=== PATIENT | female | born 1945 | race Caucasian/White ===

== ENCOUNTER 2017-10-25 17:34 | Observation (INO) | payer MEDICARE ==
[2017-10-25] MEDS ORDERED: MIDAZOLAM 2 MG/2 ML VIAL IVP STA (17:43)
[2017-10-25] MEDS ORDERED: SODIUM CHLORIDE 0.9% 1,000 ML IV ONE ×2 (17:44→20:20)
[2017-10-25 17:53] LABS: HGB - HEMOGLOBIN 13.3 g/dL (12.0-16.0); MEAN CORPUSCULAR HEMOGLOBIN 31.8 pg (27.0-31.0)
[2017-10-25 17:57] LABS: BASOPHILS % (AUTO) 0.5 %; EOSINOPHILS % (AUTO) 1.5 %; LYMPHOCYTES % (AUTO) 54.3 %; MEAN CORPUSCULAR HGB CONC 32.1 g/dL (32.0-36.0); MEAN CORPUSCULAR VOLUME 99.1 fL (81.0-99.0); MEAN PLATELET VOLUME 8.6 fL (7.9-10.8); NEUTROPHILS % (AUTO) 35.7 %; PLT - PLATELET COUNT 306 10^3/uL (130-450); RED BLOOD COUNT 4.18 10^6/uL (4.20-5.40); RED CELL DISTRIBUTION WIDTH 12.1 % (12.0-15.0); WHITE BLOOD COUNT 13.9 x10^3/uL (4.8-10.8)
[2017-10-25 17:59] LABS: ALBUMIN 4.5 g/dL (3.2-5.5); ALBUMIN/GLOBULIN RATIO 1.6 (1.0-2.2); BILIRUBIN,TOTAL 0.5 mg/dL (0.2-1.0); CALCIUM 9.5 mg/dL (8.5-10.3); CREATININE 0.9 mg/dL (0.4-1.0); MAGNESIUM 2.4 mg/dL (1.7-2.8); TOTAL PROTEIN 7.4 g/dL (6.7-8.2)
[2017-10-25 18:05] LABS: ABNORMAL LYMPHS % (MANUAL) 0 %; BAND NEUTROPHILS % (MANUAL) 0 %
[2017-10-25 18:21] LABS: EOSINOPHILS # (MANUAL) 0.1 10^3/uL (0-0.7); LYMPHOCYTES # (MANUAL) 7.8 10^3/uL (1.5-3.5); LYMPHOCYTES % (MANUAL) 16 %; MONOCYTES # (MANUAL) 0.6 10^3/uL (0.0-1.0); NEUTROPHILS # (MANUAL) 5.4 10^3/uL (1.5-6.6); NEUTROPHILS % (MANUAL) 39 %
[2017-10-25 18:22] LABS: DIFFERENTIAL COMMENT MANUAL DIFFERENTIAL; PLATELET ESTIMATE, MANUAL NORMAL (130-450,000) (NORMAL); PLATELET MORPHOLOGY 1+ LARGE PLATELETS (NORMAL); RBC MORPHOLOGY (MULTIPLE) NORMAL APPEARANCE (NORMAL)
--- NOTE | 2017-10-25 18:35 | CT Report ---
EXAM: CT HEAD EXAM DATE: 10/25/2017 06:19 PM. CLINICAL HISTORY: Repeated seizures. COMPARISON: None. TECHNIQUE: Multiaxial CT images were obtained from the foramen magnum to the vertex. Reformats: Coron al. IV contrast: None. In accordance with CT protocol optimization, one or more of the following dose reduction techniques w ere utilized for this exam: automated exposure control, adjustment of mA and/or KV based on patient s ize, or use of iterative reconstructive technique. FINDINGS: Parenchyma: No intraparenchymal hemorrhage. Prominent encephalomalacia and volume loss in the left te mporal lobe due to previous surgery. No evidence of mass, midline shift, or CT findings of acute infa rction. Farah-white differentiation is distinct. Diffuse chronic microangiopathic white matter changes . Extraaxial Spaces: Normal for age. No subdural or epidural collections. Ventricles: The ventricles and cortical sulci are enlarged, consistent with age-related tissue loss. Sinuses and orbits: Imaged paranasal sinuses, orbits, and mastoids show no significant abnormality. Bones: Previous left temporoparietal craniotomy. Otherwise unremarkable. Other: None. IMPRESSION: Postoperative and other chronic findings. No acute disease. [facility] Referring Provider Line: [phone] SITE ID: [id number]
[2017-10-25] MEDS ORDERED: ACETAMINOPHEN 1,000 MG/100 ML 100 ML IV STA (19:18)
[2017-10-25] MEDS ORDERED: ONDANSETRON 4 MG/2 ML VIAL IVP STA (20:20)
[2017-10-25] MEDS ORDERED: levETIRAcetam INJ 1,000 MG in SODIUM CHLORIDE 0.9% 100ML 100 ML IV STA (20:58)
--- NOTE | 2017-10-25 21:06 | ED Physician Documentation ---
PD HPI SEIZURE - Stated complaint Stated Complaint: UNRESPONSIVE - Chief complaint Chief Complaint: Resp - History obtained from History obtained from: Patient - History of Present Illness Timing - onset: Today (she is visiting friend (lives in [facility], so not far) and her friend noted patient to be having blank stare and not interacting well verbally. No noted weakness. She drove patient to the ER and just arriving in parking lot, the patient had general seizure. It stopped as EMS got patient into the ER. She had another seizure just coming into the ER though. IV started and was given Versed 2 mg with the seizure stopping. She then had a third one 15 -20 minutes later with just starting to rouse and open eyes better prior to that. She did recover from that one and subsequently rouses and opens eyes.) Number of seizures: Multiple, Lasted minutes Description of seizure activity: Generalized Injury during seizure: No: Fell, Head injury Associated symptoms: No: Headache, Chest pain, Nausea / vomiting History of seizures: Known seizure disorder (but has not had one for over 3-4 years.) Contributing factors: Off meds (had been taken off meds by her Neruologist due to no seizures for years. Has not been on meds for 3-4 years.), Sleep deprivation (had been tired and not sleeping well lately per family/friend.). No: Substance abuse, Fever Similar symptoms before: Diagnosis (had brain surgery years ago and subsequent seizures) Recently seen: Not recently seen Review of Systems Unable to obtain: AMS, Confused Constitutional: denies: Fever Nose: denies: Congestion Throat: denies: Sore throat Respiratory: denies: Cough GI: denies: Vomiting, Diarrhea Neurologic: denies: Generalized weakness, Syncope Psychiatric: denies: Depressed PD PAST MEDICAL HISTORY - Past Medical History Past Medical History: No Respiratory: Asthma Neuro: Seizure disorder Other Past Medical History: viral encephelitis,. sz. - Past Surgical History Past Surgical History: Yes - Allergies Allergies/Adverse Reactions: Allergies Allergy/AdvReac Type Severity Reaction Status Date / Time No Known Drug Allergies Allergy Verified 10/25/17 18:50 - Social History Does the pt smoke?: No Smoking Status: Never smoker Does the pt drink ETOH?: No Does the pt have substance abuse?: No - Immunizations Immunizations are current?: Yes PD ED PE NORMAL - Vitals Vital signs reviewed: Yes - General General: Other (initially unresponsive with post ictal altered mentation. Snoring breathing but good sats. after couple more seizures, she does rouse to awake, confused, and talkative. ) - HEENT HEENT: Atraumatic, Moist mucous membranes, Pharynx benign - Neck Neck: Supple, no meningeal sign, No adenopathy - Cardiac Cardiac: RRR, No murmur - Respiratory Respiratory: Clear bilaterally - Abdomen Abdomen: Soft, Non tender - Back Back: No CVA TTP - Derm Derm: Normal color, Warm and dry - Neuro Neuro: Alert and oriented X 3, Normal speech, Other (right arm significant weakness, cannot lift it off the cart. Right leg mild weakness. Left side is normal. No facial droop. ) Eye Opening: To Voice Motor: Obeys Commands Verbal: Oriented GCS Score: 14 - Psych Psych: Normal mood Results - Vitals Vitals: Vital Signs - 24 hr 10/25/17 10/25/17 10/25/17 17:34 17:50 18:02 Temperature 38.1 C H Heart Rate 127 H 130 H 120 H Respiratory 18 20 Rate Blood Pressure 197/67 H 136/84 H O2 Saturation 100 100 10/25/17 10/25/17 10/25/17 18:30 18:40 18:46 Temperature 36.7 C Heart Rate 122 H 112 H 104 H Respiratory 24 25 H 19 Rate Blood Pressure 168/78 H 132/69 H 127/49 L O2 Saturation 100 98 94 10/25/17 10/25/17 10/25/17 19:06 19:25 20:37 Temperature 36.9 C Heart Rate 104 H 99 88 Respiratory 20 20 18 Rate Blood Pressure 119/53 L 134/79 H 126/70 O2 Saturation 94 93 95 10/25/17 21:01 Temperature Heart Rate 87 Respiratory Rate Blood Pressure 136/68 H O2 Saturation 94 Oxygen O2 Source Room air Oxygen Flow Rate 15 - EKG (time done) 17:49 Rate: Rate (enter#) (120) Rhythm: Sinus tachycardia [place]: Normal Intervals: Normal LA QRS: Normal Ischemia: Normal ST segments. No: ST elevation c/w ischemia, ST depression - Labs Labs: Laboratory Tests 10/25/17 10/25/17 10/25/17 17:40 17:40 17:40 WBC 13.9 H RBC 4.18 L Hgb 13.3 Hct 41.4 MCV 99.1 H MCH 31.8 H MCHC 32.1 RDW 12.1 Plt Count 306 MPV 8.6 Neut # Not Reportable Lymph # Not Reportable [place] # Not Reportable Eos # Not Reportable Baso # Not Reportable Absolute Nucleated RBC Not Reportable Total Counted 100 Band Neuts % (Manual) 0 Reactive Lymphs % (Man) 40 Abnorm Lymph % (Manual) 0 Nucleated RBC % Not Reportable Neutrophils # (Manual) 5.4 Lymphocytes # (Manual) 7.8 H Monocytes # (Manual) 0.6 Eosinophils # (Manual) 0.1 Basophils # (Manual) 0.0 Differential Comment MANUAL DIFFERENTIAL Platelet Estimate NORMAL (130-450,000) Platelet Morphology 1+ LARGE PLATELETS RBC Morph Micro Appear NORMAL APPEARANCE Sodium 141 Potassium 3.9 Chloride 106 Carbon Dioxide 16 L Anion Gap 19.0 H BUN 25 H Creatinine 0.9 Estimated GFR (MDRD) 62 L Glucose 144 H POC Whole Bld Glucose Calcium 9.5 Magnesium 2.4 Total Bilirubin 0.5 AST 36 ALT 23 Alkaline Phosphatase 69 Troponin I < 0.04 B-Natriuretic Peptide Total Protein 7.4 Albumin 4.5 Globulin 2.9 Albumin/Globulin Ratio 1.6 Lipase 31 10/25/17 10/25/17 17:40 17:45 WBC RBC Hgb Hct MCV MCH MCHC RDW Plt Count MPV Neut # Lymph # [place] # Eos # Baso # Absolute Nucleated RBC Total Counted Band Neuts % (Manual) Reactive Lymphs % (Man) Abnorm Lymph % (Manual) Nucleated RBC % Neutrophils # (Manual) Lymphocytes # (Manual) Monocytes # (Manual) Eosinophils # (Manual) Basophils # (Manual) Differential Comment Platelet Estimate Platelet Morphology RBC Morph Micro Appear Sodium Potassium Chloride Carbon Dioxide Anion Gap BUN Creatinine Estimated GFR (MDRD) Glucose POC Whole Bld Glucose 138 H Calcium Magnesium Total Bilirubin AST ALT Alkaline Phosphatase Troponin I B-Natriuretic Peptide 177 H Total Protein Albumin Globulin Albumin/Globulin Ratio Lipase - Rads (name of study) head CT Radiology: Prelim report reviewed (post operative changes old. No acute bleeding nor acute process ), EMP read contemporaneously PD MEDICAL DECISION MAKING - ED course Complexity details: reviewed results, re-evaluated patient (more alert and conversant slowly. Prolonged post ictal clearing and has right arm and leg weakness, consider from Sz versus vascular cause with related seizure.), considered differential (she has been several years since seizures and is older , with right arm weakness. Consider Todds paralysis after seizure versus CVA with seizure component. CT head is okay at this time. 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 He suggests 1 G Keppra now and in AM IV and then change to orals. Eval with MRI in AM if arm still weak. Follow up soon with Neuro in [facility]. ) Departure - Departure Disposition: ED Place in Observation Clinical Impression: Seizures, Right arm weakness Condition: Stable Record reviewed to determine appropriate education?: Yes Discharge Date/Time: 10/25/17 23:34
[2017-10-25] MEDS ORDERED: SODIUM CHLORIDE FLUSH 0.9% 10 ML SYRINGE IVP PRN (21:09)
[2017-10-25] MEDS ORDERED: PROCHLORPERAZINE 10 MG/2 ML VIAL IVP PRN (21:09)
[2017-10-25] MEDS ORDERED: ZOLPIDEM 5 MG TABLET PO PRN (21:09)
[2017-10-25] MEDS ORDERED: PROMETHAZINE 25 MG/1 ML VIAL IM PRN (21:09)
[2017-10-25] MEDS ORDERED: oxyCODONE 5 MG TABLET PO PRN ×2 (21:09)
[2017-10-25] MEDS ORDERED: ACETAMINOPHEN 325 MG TABLET PO PRN (21:09)
[2017-10-25] MEDS ORDERED: ONDANSETRON 4 MG/2 ML VIAL IVP PRN (21:09)
[2017-10-25] MEDS ORDERED: IOPAMIDOL-300 100 ML VIAL IVP ONE ×2 (21:10→22:13)
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
[2017-10-25] MEDS ORDERED: IOPAMIDOL-300 100 ML VIAL ONE (22:18)
--- NOTE | 2017-10-25 22:44 | CT Report ---
EXAM: CT ANGIOGRAM HEAD. CT SCAN OF THE HEAD WITHOUT AND WITH CONTRAST. EXAM DATE: 10/25/2017 10:17 PM CLINICAL HISTORY: Seizure and right sided weakness. COMPARISON: None. TECHNIQUE: - CT Scan Head: Using a multidetector scanner, axial images were acquired from the foramen magnum to the skull vertex prior to and following contrast administration. - CT Angiogram: Using a multidetector scanner, high-resolution axial images were acquired from the sk ull base through vertex following rapid infusion of intravenous contrast. Reformats: Multiplanar MIP reformats were reconstructed. Nascet criteria used for stenosis measurement. IV Contrast: 80 cc Isovue-300. In accordance with CT protocol optimization, one or more of the following dose reduction techniques w ere utilized for this exam: automated exposure control, adjustment of mA and/or KV based on patient s ize, or use of iterative reconstructive technique. FINDINGS: NON-CONTRAST HEAD: Parenchyma: No intraparenchymal hemorrhage. No evidence of mass, midline shift, or CT findings of acu te infarction. Status post left temporal lobe resection. Extraaxial Spaces: Normal for age. No subdural or epidural collections identified. Ventricles: Normal in size and position. Sinuses and orbits: Imaged paranasal sinuses, orbits, and mastoids show no significant abnormality. Bones: Status post left-sided craniotomy. Other: None. POST-CONTRAST HEAD: No abnormal enhancement. CT ANGIOGRAM HEAD: RIGHT: Internal Carotid artery: No evidence of dissection. No evidence of aneurysm along the intracranial IC A. Anterior Cerebral Artery: Patent without significant stenosis, aneurysm, or vascular malformation. Middle Cerebral Artery: Patent without significant stenosis, aneurysm, or vascular malformation. Posterior Cerebral Artery: Patent without significant stenosis, aneurysm, or vascular malformation. Posterior Communicating Artery: Patent. No aneurysm. Vertebral Artery: Patent without significant stenosis. No evidence of dissection. LEFT: Internal Carotid artery: No evidence of dissection. No evidence of aneurysm along the intracranial IC A. Anterior Cerebral Artery: Patent without significant stenosis, aneurysm, or vascular malformation. Middle Cerebral Artery: Patent without significant stenosis, aneurysm, or vascular malformation. Posterior Cerebral Artery: Patent without significant stenosis, aneurysm, or vascular malformation. Posterior Communicating Artery: Patent. No aneurysm. Vertebral Artery: Patent without significant stenosis. No evidence of dissection. CENTRAL: Anterior Communicating Artery: Patent. No aneurysm. Basilar Artery: Patent without significant stenosis. No aneurysm. DURAL VENOUS SINUSES AND MAJOR CENTRAL VEINS: Patent. IMPRESSION: CT Head: No acute intracranial abnormality. No abnormal enhancement. CTA Head: Normal CTA of the head. No intracranial stenosis or aneurysm. [facility] Referring Provider Line: [phone] SITE ID: [id number]
--- NOTE | 2017-10-25 22:44 | CT Preliminary Report ---
Exam: CT HEAD ANGIO IMPRESSION: CT Head: No acute intracranial abnormality. No abnormal enhancement. CTA Head: Normal CTA of the head. No intracranial stenosis or aneurysm. [facility] SITE ID: [id number]
--- NOTE | 2017-10-25 22:52 | CT Report ---
EXAM: CT ANGIOGRAM NECK EXAM DATE: 10/25/2017 10:18 PM. CLINICAL HISTORY: Seizure and right sided weakness. COMPARISON: None. TECHNIQUE: Routine axial helical imaging was performed from the skull base through the aortic arch. R econstructions: Routine multiplanar 3D MIP reconstructions. IV Contrast: Yes. Evaluation of arterial stenosis is based on a NASCET method of measurement. In accordance with CT protocol optimization, one or more of the following dose reduction techniques w ere utilized for this exam: automated exposure control, adjustment of mA and/or KV based on patient s ize, or use of iterative reconstructive technique. FINDINGS: Right Carotid: The common carotid, internal carotid, and external carotid arteries are widely patent. No dissection, significant atherosclerotic plaque, or calcification identified. Left Carotid: The common carotid, internal carotid, and external carotid arteries are widely patent. There is calcification of the proximal left ICA without significant stenosis. Vertebrals: There is moderate narrowing of the right vertebral origin. Remainder of right vertebral n ormal in caliber. Left vertebral origin is not well seen due to streak related to venous contrast. Re mainder of left vertebral normal in caliber. Intracranial Circulation: Normal. No stenoses or aneurysms of the visualized vessels. Other: The bones, soft tissues, and lung apices are within normal limits. IMPRESSION: 1. No carotid stenosis. 2. Moderate narrowing of right vertebral origin. Left vertebral origin not well seen. Remainder of ve rtebral artery is normal in caliber. [facility] Referring Provider Line: [phone] SITE ID: [id number]
--- NOTE | 2017-10-25 22:52 | CT Preliminary Report ---
Exam: CT NECK ANGIO IMPRESSION: 1. No carotid stenosis. 2. Moderate narrowing of right vertebral origin. Left vertebral origin not well seen. Remainder of ve rtebral artery is normal in caliber. [facility] SITE ID: [id number]
[2017-10-26] MEDS: SODIUM CHLORIDE FLUSH 0.9% 10 ML SYRINGE IVP SCH ×3 (01:26→20:53)
[2017-10-26 04:23] LABS: BILIRUBIN,URINE NEGATIVE (NEGATIVE); GLUCOSE, URINE (UA) NEGATIVE (NEGATIVE); KETONES,URINE (UA) NEGATIVE (NEGATIVE); LEUKOCYTE ESTERASE, URINE NEGATIVE (NEGATIVE); NITRITE,URINE NEGATIVE (NEGATIVE); OCCULT BLOOD,URINE MODERATE (NEGATIVE); PH,URINE 5.5 PH (5.0-7.5); PROTEIN,URINE NEGATIVE (NEGATIVE); UROBILINOGEN,URINE 0.2 (NORMAL) E.U./dL (NORMAL)
[2017-10-26 04:28] LABS: CLARITY,URINE CLEAR (CLEAR)
[2017-10-26 04:29] LABS: BACTERIA,URINE Rare /HPF (None Seen); SQUAMOUS EPITHELIAL CELL,UR RARE Squamous (<= Few)
[2017-10-26 05:12] LABS: BASOPHILS % (AUTO) 0.4 %; EOSINOPHILS % (AUTO) 0.1 %; HGB - HEMOGLOBIN 11.6 g/dL (12.0-16.0); LYMPHOCYTES # (AUTO) 1.5 10^3/uL (1.5-3.5); LYMPHOCYTES % (AUTO) 21.6 %; MEAN CORPUSCULAR HEMOGLOBIN 32.3 pg (27.0-31.0); MEAN CORPUSCULAR HGB CONC 34.4 g/dL (32.0-36.0); MEAN CORPUSCULAR VOLUME 93.9 fL (81.0-99.0); MEAN PLATELET VOLUME 7.7 fL (7.9-10.8); MONOCYTES # (AUTO) 0.7 10^3/uL (0.0-1.0); MONOCYTES % (AUTO) 9.8 %; NEUTROPHILS # (AUTO) 4.6 10^3/uL (1.5-6.6); NEUTROPHILS % (AUTO) 68.1 %; PLT - PLATELET COUNT 212 10^3/uL (130-450); RED BLOOD COUNT 3.58 10^6/uL (4.20-5.40); RED CELL DISTRIBUTION WIDTH 11.9 % (12.0-15.0); WHITE BLOOD COUNT 6.8 x10^3/uL (4.8-10.8)
[2017-10-26 05:17] LABS: PT - PROTHROMBIN TIME 11.6 secs (9.9-12.6)
[2017-10-26 05:23] LABS: ALBUMIN 3.7 g/dL (3.2-5.5); ALBUMIN/GLOBULIN RATIO 1.6 (1.0-2.2); BILIRUBIN,TOTAL 0.6 mg/dL (0.2-1.0); CALCIUM 8.1 mg/dL (8.5-10.3); CREATININE 0.7 mg/dL (0.4-1.0)
[2017-10-26 05:28] LABS: HB2 TOTAL 12.6 g/dL; HEMOGLOBIN A1C 0.43 g/dL; HEMOGLOBIN A1C % 5.3 % (4.6-6.2)
[2017-10-26] MEDS ORDERED: levETIRAcetam INJ 1,000 MG in SODIUM CHLORIDE 0.9% 100ML 100 ML IV SCH (09:00)
[2017-10-26] MEDS: ASPIRIN 325 MG TABLET PO SCH (09:06)
[2017-10-26] MEDS: FAMOTIDINE 20 MG TABLET PO SCH (09:06)
[2017-10-26] MEDS: POLYETHYLENE GLYCOL 3350 17 GM PACKET PO SCH (09:07)
[2017-10-26] MEDS ORDERED: diazePAM 5 MG TABLET PO SCH (09:27)
[2017-10-26] MEDS ORDERED: LORazepam 2 MG/ML VIAL IVP PRN (09:27)
--- NOTE | 2017-10-26 12:47 | MRI Report ---
EXAM: MRI BRAIN WITHOUT CONTRAST EXAM DATE: 10/26/2017 11:44 AM. CLINICAL HISTORY: Seizure and right-sided weakness. History of partial seizures which started after e pisode of meningitis over 30 years ago. COMPARISON: CT scan and CT angiogram of the head 10/25/2017. TECHNIQUE: Multiplanar, multisequence T1-weighted and fluid-sensitive MR sequences of the brain were performed. Sequences optimized for routine evaluation. Other: None. IV Contrast: None. FINDINGS: Brain Volume: Normal for age. Parenchyma/Dura: No mass, acute infarct or hemorrhage. Postoperative change from resection of the anterior left temporal lobe is evident. Patchy white matte r T2/FLAIR bright signal is seen at the surgical interface of resection in the mid left temporal lobe . Resection of the anterior left hippocampal formation is appreciated. Atrophy of the posterior left hippocampal formation is present. Atrophy of the left fornix is seen as well. The right hippocampal f ormation and fornix are unremarkable. A small focal area of cortical and subcortical cystic encephalomalacia is seen posterolaterally in th e posterior left temporal lobe. Similar small focus of punctate T2/FLAIR bright signal is seen in the left frontal operculum. Ventricles/Cisterns: No hydrocephalus. No abnormal extra-axial fluid collection or hemorrhage. Orbits: Symmetric and unremarkable. Sella Turcica: The pituitary gland, cavernous sinuses, suprasellar cistern and optic chiasm are unrem arkable. IAC: Symmetric and unremarkable. Vasculature: Normal signal flow void is seen in the major arterial structures at the skull base. Sinuses: No acute appearing sinus disease. Bones: No focal pathologic appearing marrow signal changes. Other: None. IMPRESSION: 1. Postoperative change from resection of the anterior left temporal lobe. Associated atrophy of post erior left hippocampal formation and left fornix is evident. 2. The right hippocampal formation and fornix are unremarkable. 3. Small focus of encephalomalacia seen posterolaterally in the left temporal lobe with punctate focu s in the left frontal operculum. [facility] Referring Provider Line: [phone] SITE ID: [id number]
--- NOTE | 2017-10-26 18:36 | PROVIDER PROGRESS NOTE ---
Assessment/Plan - Problem List (1) Depression Qualifiers: Depression Type: major depressive disorder Major depression recurrence: recurrent Major depression episode severity: mild Assessment/Plan: Patient has a long history of depression, and is not medically treated at home. She has a remote history of suicidal ideation, but has not been an issue for her lately. Plan: Continue current plan. (2) Right sided weakness Assessment/Plan: Ronna was receiving out patient OT for her right upper arm injury for the past few months and has baseline impairment. A brain MRI was completed and showed no new injury or changes from previous craniotomy ~30 years ago. Plan: Continue to monitor. (3) Tonic clonic seizures Assessment/Plan: Patient has a history of menengitis ~30 years ago that required a craniotomy. Since that time she has had intermittent seizures. As per Dr. Augustin's HPI: The patient was previously on antiepileptic medications until about 3-4 years ago when she stopped the medications with the guidance of her neurologist. She states that prior to this she went on to healing retreat and since then had not had any further seizures and stopped the medications. At the time of admission , she was in her normal state of health and visiting her friend. The patient's friend noticed during a hike, that the patient was acting strangely and staring off. The patient's friend became concerned that she was not responding appropriately and took her into her car and brought her to the emergency department. When the patient reached the parking lot of the emergency department with her friend states the patient grabbed her chest and the patient' s eyes rolled back. The patient was taken out of the car and began having agonal respirations in the parking lot. A CODE BLUE was called and the patient was put on a stretcher to bring to the emergency department and during transport on the stretcher she had a tonic-clonic seizure. The seizure aborted spontaneously and the patient was postictal in the ED. She had another tonic- clonic seizure this time she required Versed in order to abort the seizure. After the seizure she was again postictal and even after she seemed to have regained her normal mentation she had persistent right sided weakness of her arm and leg. During the the day shift today, she was fount to have a "gaze" noted by family, but no other symptoms and no change in VS. She had just finished her IV Keppra. Plan: Continue current treatment and await MRI results. - Current Meds Current Meds: Current Medications Generic Name Dose Route Start Last Admin Trade Name Freq PRN Reason Stop Dose Admin Acetaminophen 650 mg 10/25/17 21:09 10/26/17 01:25 Tylenol PO 650 mg Q4HR PRN Administration Pain 1 to 4 Aspirin 325 mg 10/26/17 08:00 10/26/17 09:06 Ezra PO 325 mg DAILYWM JOSE CARLOS Administration Famotidine 20 mg 10/26/17 09:00 10/26/17 09:06 Pepcid PO Not Given DAILY JOSE CARLOS Lorazepam 0.5 mg 10/26/17 09:27 10/26/17 10:42 Ativan Inj (Vial) IVP 0.5 mg Q2H PRN Administration Anxiety Polyethylene Glycol 17 gm 10/26/17 09:00 10/26/17 09:07 Miralax PO Not Given DAILY JOSE CARLOS Prochlorperazine Edisylate 10 mg 10/25/17 21:09 10/26/17 09:05 Compazine Inj IVP 10 mg Q6HR PRN Administration Nausea / Vomiting Sodium Chloride 10 ml 10/25/17 21:09 10/26/17 10:41 Normal Saline Flush 0.9% IVP 10 ml PRN PRN Administration NEEDED PER PROVIDER ORDERS Sodium Chloride 10 ml 10/26/17 01:00 10/26/17 09:06 Normal Saline Flush 0.9% IVP 10 ml 0100,[id number],1700 JOSE CARLOS Administration - Lab Result Lab results reviewed: Yes Fish Bone Diagrams: 10/27/17 05:28 10/27/17 05:28 - EKG Results EKG Interpreted Independently: Yes - Diagnostic Imaging Results Diagnostic Imaging Results: Prelim report reviewed, Final report reviewed - Additional Planning Condition/Complexity: Guarded My Orders: My Active Orders 10/26/17 09:27 LORazepam INJ [Ativan Inj (Vial)] 0.5 mg IVP Q2H PRN Consult/Specialty: Neurology (Contact with [facility] [place] in [place] was made at the time of admission- recommendations were given and followed thus far.) Plan Discussed with:: Patient, Family Time Spent: 15-30 minutes Subjective - Subjective Patient Reports: Feeling Better, No Complaints Nursing Reports: No Complaints, Headache (chronic, no changes.) Objective Vital Signs: Vital Signs - 24 hr 10/25/17 10/25/17 10/25/17 21:35 22:29 23:29 Temperature 36.6 C 36.7 C Heart Rate 88 88 81 Heart Rate [ Brachial] Respiratory 23 21 21 Rate Blood Pressure 131/77 H 99/50 L 84/39 L Blood Pressure [Left Brachial artery] Blood Pressure [Right Brachial artery] O2 Saturation 99 93 10/26/17 10/26/17 10/26/17 00:00 00:45 05:11 Temperature 36.9 C 36.9 C 37.0 C Heart Rate Heart Rate [ 82 78 72 Brachial] Respiratory 16 18 18 Rate Blood Pressure Blood Pressure [Left Brachial artery] Blood Pressure 129/67 116/67 106/59 L [Right Brachial artery] O2 Saturation 94 96 95 10/26/17 10/26/17 10/26/17 07:34 11:00 11:15 Temperature 37 C Heart Rate Heart Rate [ 71 76 76 Brachial] Respiratory 18 16 17 Rate Blood Pressure Blood Pressure 117/60 [Left Brachial artery] Blood Pressure [Right Brachial artery] O2 Saturation 95 94 94 10/26/17 10/26/17 11:30 11:58 Temperature 37.0 C Heart Rate Heart Rate [ 75 84 Brachial] Respiratory 16 17 Rate Blood Pressure Blood Pressure 137/64 H [Left Brachial artery] Blood Pressure [Right Brachial artery] O2 Saturation 93 94 Oxygen O2 Source Room air I&O (Last 24 Hrs): Intake and Output Totals x24h 10/24/17 10/25/17 10/26/17 23:59 23:59 23:59 Intake Total 1110 950 Output Total 500 1225 Balance 610 -275 General: Moderate distress HEENT: Atraumatic Neck: Supple, No JVD Lymphatic: no adenopathy Neuro: Focal Deficits, Non Focal, Other (not at baseline mentation. right sided weakness improved and now nearly subsided.) Cardiovascular: Regular rate Respiratory: Chest non-tender, No respiratory distress, Breath sounds nml Abdomen: Normal bowel sounds, Soft, No tenderness, No masses Extremities: No edema, Other (right arm chronic injury-attends PT as out patient.) Skin: No rashes - Results Results: Laboratory Results WBC 6.8 x10^3/uL (4.8-10.8) 10/26/17 04:58 RBC 3.58 10^6/uL (4.20-5.40) L 10/26/17 04:58 Hgb 11.6 g/dL (12.0-16.0) L 10/26/17 04:58 Hct 33.6 % (37.0-47.0) L 10/26/17 04:58 MCV 93.9 fL (81.0-99.0) 10/26/17 04:58 MCH 32.3 pg (27.0-31.0) H 10/26/17 04:58 MCHC 34.4 g/dL (32.0-36.0) 10/26/17 04:58 RDW 11.9 % (12.0-15.0) L 10/26/17 04:58 Plt Count 212 10^3/uL (130-450) 10/26/17 04:58 MPV 7.7 fL (7.9-10.8) L 10/26/17 04:58 Neut # 4.6 10^3/uL (1.5-6.6) 10/26/17 04:58 Lymph # 1.5 10^3/uL (1.5-3.5) 10/26/17 04:58 [place] # 0.7 10^3/uL (0.0-1.0) 10/26/17 04:58 Eos # 0.0 10^3/uL (0.0-0.7) 10/26/17 04:58 Baso # 0.0 10^3/uL (0.0-0.1) 10/26/17 04:58 Absolute Nucleated RBC 0.00 x10^3/uL 10/26/17 04:58 Total Counted 100 10/25/17 17:40 Band Neuts % (Manual) 0 % (0-10) 10/25/17 17:40 Reactive Lymphs % (Man) 40 % 10/25/17 17:40 Abnorm Lymph % (Manual) 0 % 10/25/17 17:40 Nucleated RBC % 0.0 /100WBC 10/26/17 04:58 Neutrophils # (Manual) 5.4 10^3/uL (1.5-6.6) 10/25/17 17:40 Lymphocytes # (Manual) 7.8 10^3/uL (1.5-3.5) H 10/25/17 17:40 Monocytes # (Manual) 0.6 10^3/uL (0.0-1.0) 10/25/17 17:40 Eosinophils # (Manual) 0.1 10^3/uL (0-0.7) 10/25/17 17:40 Basophils # (Manual) 0.0 10^3/uL (0-0.1) 10/25/17 17:40 Differential Comment MANUAL DIFFERENTIAL 10/25/17 17:40 Platelet Estimate NORMAL (130-450,000) (NORMAL) 10/25/17 17:40 Platelet Morphology 1+ LARGE PLATELETS (NORMAL) 10/25/17 17:40 RBC Morph Micro Appear NORMAL APPEARANCE (NORMAL) 10/25/17 17:40 PT 11.6 secs (9.9-12.6) 10/26/17 04:58 INR 1.0 (0.8-1.2) 10/26/17 04:58 Sodium 136 mmol/L (135-145) 10/26/17 04:58 Potassium 3.5 mmol/L (3.5-5.0) 10/26/17 04:58 Chloride 105 mmol/L (101-111) 10/26/17 04:58 Carbon Dioxide 25 mmol/L (21-32) 10/26/17 04:58 Anion Gap 6.0 (6-13) 10/26/17 04:58 BUN 14 mg/dL (6-20) 10/26/17 04:58 Creatinine 0.7 mg/dL (0.4-1.0) 10/26/17 04:58 Estimated GFR (MDRD) 82 (>89) L 10/26/17 04:58 Glucose 98 mg/dL (70-100) 10/26/17 04:58 POC Whole Bld Glucose 138 mg/dL (70 - 100) H 10/25/17 17:45 Glycated Hemoglobin 5.3 % (4.6-6.2) 10/26/17 05:08 Estim Average Glucose 105 (70-100) H 10/26/17 05:08 Calcium 8.1 mg/dL (8.5-10.3) L 10/26/17 04:58 Magnesium 2.4 mg/dL (1.7-2.8) 10/25/17 17:40 Total Bilirubin 0.6 mg/dL (0.2-1.0) 10/26/17 04:58 AST 39 IU/L (10-42) 10/26/17 04:58 ALT 21 IU/L (10-60) 10/26/17 04:58 Alkaline Phosphatase 48 IU/L (42-121) 10/26/17 04:58 Troponin I < 0.04 ng/mL (<0.49) 10/25/17 17:40 B-Natriuretic Peptide 177 pg/mL (5-100) H 10/25/17 17:40 Total Protein 6.0 g/dL (6.7-8.2) L 10/26/17 04:58 Albumin 3.7 g/dL (3.2-5.5) 10/26/17 04:58 Globulin 2.3 g/dL (2.1-4.2) 10/26/17 04:58 Albumin/Globulin Ratio 1.6 (1.0-2.2) 10/26/17 04:58 Lipase 31 U/L (22-51) 10/25/17 17:40 Urine Color YELLOW 10/26/17 04:20 Urine Clarity CLEAR (CLEAR) 10/26/17 04:20 Urine pH 5.5 PH (5.0-7.5) 10/26/17 04:20 Ur Specific [place] <=1.005 (1.002-1.030) 10/26/17 04:20 Urine Protein NEGATIVE mg/dL (NEGATIVE) 10/26/17 04:20 Urine Glucose (UA) NEGATIVE mg/dL (NEGATIVE) 10/26/17 04:20 Urine Ketones NEGATIVE mg/dL (NEGATIVE) 10/26/17 04:20 Urine Occult Blood MODERATE (NEGATIVE) H 10/26/17 04:20 Urine Nitrite NEGATIVE (NEGATIVE) 10/26/17 04:20 Urine Bilirubin NEGATIVE (NEGATIVE) 10/26/17 04:20 Urine Urobilinogen 0.2 (NORMAL) E.U./dL (NORMAL) 10/26/17 04:20 Ur Leukocyte Esterase NEGATIVE (NEGATIVE) 10/26/17 04:20 Urine RBC 6-10 /HPF (0-5) H 10/26/17 04:20 Urine WBC 0-3 /HPF (0-5) 10/26/17 04:20 Ur Squamous Epith Cells RARE Squamous (<= Few) 10/26/17 04:20 Urine Bacteria Rare /HPF (None Seen) 10/26/17 04:20 Ur Microscopic Review INDICATED 10/26/17 04:20 Urine Culture Comments NOT INDICATED 10/26/17 04:20
[2017-10-26] MEDS: levETIRAcetam 250 MG TABLET PO SCH (20:53)
[2017-10-26] MEDS ORDERED: ATORVASTATIN 40 MG TABLET PO SCH (21:00)
[2017-10-27] MEDS: SODIUM CHLORIDE FLUSH 0.9% 10 ML SYRINGE IVP SCH ×2 (00:31→08:28)
[2017-10-27 05:59] LABS: BASOPHILS % (AUTO) 0.6 %; EOSINOPHILS # (AUTO) 0.1 10^3/uL (0.0-0.7); EOSINOPHILS % (AUTO) 1.3 %; HGB - HEMOGLOBIN 11.8 g/dL (12.0-16.0); LYMPHOCYTES # (AUTO) 1.5 10^3/uL (1.5-3.5); LYMPHOCYTES % (AUTO) 26.6 %; MEAN CORPUSCULAR HEMOGLOBIN 32.2 pg (27.0-31.0); MEAN CORPUSCULAR HGB CONC 34.1 g/dL (32.0-36.0); MEAN CORPUSCULAR VOLUME 94.4 fL (81.0-99.0); MONOCYTES # (AUTO) 0.5 10^3/uL (0.0-1.0); MONOCYTES % (AUTO) 8.7 %; NEUTROPHILS # (AUTO) 3.6 10^3/uL (1.5-6.6); NEUTROPHILS % (AUTO) 62.8 %; PLT - PLATELET COUNT 209 10^3/uL (130-450); RED BLOOD COUNT 3.66 10^6/uL (4.20-5.40); RED CELL DISTRIBUTION WIDTH 12.1 % (12.0-15.0); WHITE BLOOD COUNT 5.7 x10^3/uL (4.8-10.8)
[2017-10-27 06:04] LABS: ALBUMIN 3.5 g/dL (3.2-5.5); ALBUMIN/GLOBULIN RATIO 1.4 (1.0-2.2); BILIRUBIN,TOTAL 0.8 mg/dL (0.2-1.0); CALCIUM 8.3 mg/dL (8.5-10.3); CREATININE 0.8 mg/dL (0.4-1.0)
[2017-10-27 06:17] LABS: PT - PROTHROMBIN TIME 11.3 secs (9.9-12.6)
[2017-10-27] MEDS: FAMOTIDINE 20 MG TABLET PO SCH (08:26)
[2017-10-27] MEDS: ASPIRIN 325 MG TABLET PO SCH (08:26)
[2017-10-27] MEDS: levETIRAcetam 250 MG TABLET PO SCH (08:27)
[2017-10-27] MEDS: POLYETHYLENE GLYCOL 3350 17 GM PACKET PO SCH (08:28)
[2017-10-27 12:38] VITALS: BP 126/64
--- NOTE | 2017-10-27 13:44 | Discharge Plan ---
Discharge Plan Disposition: 01 Home, Self Care Condition: Good Prescriptions: Levetiracetam [Keppra] 500 mg PO BID #60 tablet Diet: Regular Activity Restrictions: Activity as Tolerated Shower Restrictions: No Driving Restrictions: Yes Weight Bearing: Full Weight Additional Instructions or Follow Up instructions: You were brought to the ED by your friend for seizure activities. Your right side became weak, but soon resolved. A head CT and brain MRI were completed and showed no acute finding. It is unknown as to the exact cause of your seizures. [facility] neurology was contacted for treatment recommendations, who suggested that you start on Keppra to prevent further seizures. This was given IV at first, then changed to an oral form. A new prescription was sent to your pharmacy. Please stay off work until you see your PCP (within one week). Avoid driving since you have only been seizure free for just over 24 hours. Get plenty of rest and avoid over stimulating activities. No Smoking: If you smoke, Please STOP! Call for help.
--- NOTE | 2017-10-27 18:27 | DISCHARGE SUMMARY ---
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 Keppra PO to continue. Right sided weakness (R53.1)- resolved, now at baseline. Depression (F32.9)- stable. - HPI History of Present Illness: HPI as per Dr. Augustin: Patient is a 72-year-old female with a past medical history significant for seizure disorder with history of partial seizures which started after a episode of meningitis over 30 years ago status post craniotomy, depression and TIAs who presented to the emergency department with a seizure. The patient was previously on antiepileptic medications until about 3-4 years ago when she stopped the medications with the guidance of her neurologist. She states that prior to this she went on to healing retreat and since then had not had any further seizures and stopped the medications. She states that she used to be on 2 antiepileptic medications but cannot remember the names. She states that she has been on a number of different medications throughout the years. 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 The patient's friend became concerned that she was not responding appropriately and took her into her car and brought her to the emergency department. When the patient reached the parking lot of the emergency department with her friend states the patient grabbed her chest and the patient' s eyes rolled back. The patient was taken out of the car and began having agonal respirations in the parking lot. A CODE BLUE was called and on arrival the patient was found to have strong radial pulses. The patient was put on a stretcher to bring to the emergency department and while on the stretcher she had a tonic-clonic seizure. The seizure aborted spontaneously and the patient was postictal in the emergency department. She seemed to be improving but then had another tonic -clonic seizure this time she required Versed in order to abort the seizure. After the seizure she was again postictal and even after she seemed to have regained her normal mentation she had persistent right sided weakness of her arm and leg. The patient denies having had any recent fevers, chills, headaches, blurred vision, runny nose, sore throat, difficulty swallowing, chest pain, shortness of air, orthopnea, PND, palpitations, increased lower extremity swelling, nominal pain, nausea, vomiting, diarrhea, constipation, dysuria, increased urinary frequency, polydipsia, polyuria, joint pain, muscle aches, joint swelling, back pain, neck stiffness, recent unintentional weight loss, changes in her appetite, skin changes. In the emergency room the patient was initially febrile, tachycardic, hypertensive and was requiring a 15 L nonrebreather but was saturating well. Eventually once the patient settled down from her multiple seizures and her post ictal phase resolved the patient's vital signs were stable. The patient underwent routine lab work which did reveal a leukocytosis of 13.9 which was likely reactive to her seizures. The patient also was found to have hyperglycemia with a blood glucose of 144 and a normal troponin. The patient was slightly acidotic with a carbon dioxide of 16 again this was post ictal. The patient did undergo a CT of her head which showed postoperative and other chronic findings but no acute disease. The emergency room physician did speak with neurology from [facility] and they advised that the patient be placed in observation. They also advised that the patient be given 1 g of IV Keppra in the emergency department and another gram of IV Keppra in the morning and then switch to oral Keppra. They thought that the right arm weakness was likely a Joon's paralysis post seizure but recommended an MRI if the symptoms persist to rule out possibility of stroke. - HOSPITAL COURSE Hospital Course: The following diagnoses were prevalent during this hospital stay: (1) Major Depressive disorder- Patient has a long history of depression, and is not medically treated at home. She has a remote history of suicidal ideation , but has not been an issue for her lately. (2) Right sided weakness- Ronna was receiving out patient OT for her right upper arm injury for the past few months and has baseline impairment. A brain MRI was completed and showed no new injury or changes from previous craniotomy ~ 30 years ago. Plan: Continue to monitor. (3) Tonic clonic seizures- The patient has had multiple episode since the onset of this illness. Her last know seizure activity was during the the day shift yesterday when she was fount to have a "gaze" noted by family, but no other symptoms and no change in VS. She was given IV Keppra followed by PO Keppra that will continue at home. Seizures were thought to be unknown cause, and brain MRI showed no new findings. Disposition: Patient was in stable condition and recommendations to refrain from driving were given. She was provided a work excuse note as requested. - ALLERGIES Allergies/Adverse Reactions: Allergies Allergy/AdvReac Type Severity Reaction Status Date / Time No Known Drug Allergies Allergy Verified 10/25/17 18:50 - MEDICATIONS Home Medications: Ambulatory Orders Medication Instructions Recorded Confirmed Albuterol 2.5 mg INH PRN PRN 10/27/17 10/27/17 Carboxymethylcellulose Sodium 1 drops EACHEYE PRN PRN 10/27/17 10/27/17 [Refresh Tears] Levetiracetam [Keppra] 500 mg PO BID #60 tablet 10/27/17 - PHYSICAL EXAM AT DISCHARGE General Appearance: positive: No acute distress, Alert Eyes Bilateral: positive: Normal inspection, PERRL ENT: positive: ENT inspection nml, Pharynx nml, No signs of dehydration Neck: positive: Nml inspection, Thyroid nml, No JVD, Trachea midline Respiratory: positive: Chest non-tender, No respiratory distress, Breath sounds nml Cardiovascular: positive: Regular rate & rhythm, No gallop, Decreased pulse(s) Peripheral Pulses: positive: 1+ Abdomen: positive: Non-tender, No organomegaly, Nml bowel sounds Back: positive: Nml inspection Skin: positive: No rash, Warm, Dry Extremities: positive: Non-tender, Full ROM, Nml appearance, No pedal edema Neurologic/Psychiatric: positive: Oriented x3, CN's nml (2-12), Motor nml, Sensation nml, Weakness, Sensory loss, Depressed mood/affect Reflexes: Bicep (R): 2+, Bicep (L): 3+ - LABS Result Diagrams: 10/27/17 05:28 10/27/17 05:28 - DIAGNOSTIC IMAGING Diagnostic Imaging Results: Prelim report reviewed, Final report reviewed - FOLLOW UP Follow Up: Disposition: 01 Home, Self Care Condition: Good Prescriptions: Levetiracetam [Keppra] 500 mg PO BID #60 tablet Diet: Regular Activity Restrictions: Activity as Tolerated Shower Restrictions: No Driving Restrictions: Yes Weight Bearing: Full Weight Additional Instructions or Follow Up instructions: You were brought to the ED by your friend for seizure activities. Your right side became weak, but soon resolved. A head CT and brain MRI were completed and showed no acute finding. It is unknown as to the exact cause of your seizures. [facility] neurology was contacted for treatment recommendations, who suggested that you start on Keppra to prevent further seizures. This was given IV at first, then changed to an oral form. A new prescription was sent to your pharmacy. Please stay off work until you see your PCP (within one week). Avoid driving since you have only been seizure free for just over 24 hours. Get plenty of rest and avoid over stimulating activities. - TIME SPENT Time Spent in Discharge (Minutes): 50
== END 2017-10-27 14:10 | disposition home or self-care (01) ==
LOC: ED 17:34 → EDBD 17:34 → OBS 21:09
PROVIDERS: ADMIT Internal Medicine; ATTEND Nurse Practitioner
DX: G40.409 Other generalized epilepsy and epileptic syndromes, not intractable, without status epilepticus (principal); R53.1 Weakness; F33.9 Major depressive disorder, recurrent, unspecified; R40.2412 Glasgow coma scale score 13-15, at arrival to emergency department; S49.91XD Unspecified injury of right shoulder and upper arm, subsequent encounter; Z86.61 Personal history of infections of the central nervous system; Z86.73 Personal history of transient ischemic attack (TIA), and cerebral infarction without residual deficits; Z87.891 Personal history of nicotine dependence; Z98.890 Other specified postprocedural states
CPT/HCPCS: 36415; 70450; 70496; 70498; 70551; 80053; 81001; 83036; 83690; 83735; 83880; 84484; 85025; 85610; 93005; 93306; 96361; 96365; 96366; 96375; 99285; A9270; G0378; J0131; J2060; Q9967; 81003; 87086